=== PATIENT | male | born 1945 | race Caucasian/White ===

== ENCOUNTER 2018-12-05 01:17 | Emergency (ER) | payer OTHER, MEDICARE ==
--- NOTE | 2018-12-05 01:41 | EDPHY ---
General - History Smoking Status: Never smoked Time Seen by Provider: 12/05/18 01:34 Narrative: CLINICAL IMPRESSION: Urinary retention ASSESSMENT/PLAN: A 72-year-old male visiting our area from the [facility] presents to the emergency department with concerns of acute urinary retention. Patient states he has had very little urine output since this morning, has been traveling all day, drank a lot of water with dinner. He has been out of his BPH medications for 3 days. He denies significant abdominal pain, nausea, vomiting, fever and chills. No history of UTI. Patient will be signed out to Dr. Chamorro pending renal functions, urinalysis, and re-evaluation. DIFFERENTIAL DX: Differential includes but not limited to urinary tract infection, urinary retention, obstructive ureterolithiasis, renal insufficiency, dehydration ED PROCEDURES: See lab and/or imaging results below ED COURSE: Bladder scan reveals 284 mL 1:50 a.m.: Case discussed with Dr. Chamorro. Plan basic metabolic panel, evaluate renal function, urinalysis, patient declining IV fluids. Will plan to give prescription for his regular BPH medication. CHIEF COMPLAINT: Urinary retention HPI: Very pleasant 72-year-old male visiting our area from [facility], for a martial arts seminar, arriving this morning, presents to the emergency department after he ran out of his normal BPH medications 3 days ago. He reports he has not had good urine output since this morning. He is able to relieve approximately 5-10 mL at a time. He spends most of his time between [place] and very [place] in [place]. His urologist [place] provided him with a catheter to use at home if he ever retained because [place] but he has never had to use this. He denies severe lower abdominal pain, fever, chills or UTI symptoms. No flank pain. Patient states he has found the "perfect combination" for his BPH between Cialis and alfuzosin and is nervous about detering from this combination as he does not want risk for adverse long-term sexual dysfunction. He reports he has been drinking water all night and does not feel he needs an IV. He also reports his primary care gave him a prescription for a potent anti-inflammatory if he ever needed at some point but he does not remember what this is. PAST MEDICAL HISTORY: BPH, hypothyroidism See triage summary and nurse notes for addition applicable history Pertinent Past Surgical History: None reported Family History: None reported Social History: Visiting from [place] REVIEW OF SYSTEMS: A full 10 point review of systems was negative except for those mentioned in HPI. PHYSICAL EXAM: General Appearance: Alert, oriented, pleasant, younger than the stated age, appropriate, cooperative, NAD, well hydrated, non-toxic appearing, VSS, no hypoxia. Respiratory: There are no retractions, lungs are clear to auscultation. Cardiac: Regular rate and rhythm, no murmurs or gallops. Gastrointestinal: Abdomen is soft, nontender, bowel sounds normal, no masses/ hernia, no rigidity, guarding or focal peritoneal findings. Skin: Warm, dry, no rashes, no nodules on palpation. MEDICAL DECISION MAKING: Patient was seen independently. Secondary supervising physician at time of evaluation was: Dr. Chamorro . Diagnosis: Acute urinary retention . New, requires workup Summary: See Assessment and Plan for summary of ED visit Clinical lab tests: ordered / reviewed. Signed out to Dr. Chamorro at 2:00 a.m. Patient Progress: Stable. (Jose Easley) Medical Decision Makin: Patient resting comfortably no acute distress. States he denies any abdominal pain. He is requesting discharge. He does understand slightly dehydrated with elevated BUN. I do encourage him to stay well-hydrated drink lots of fluids. We discussed about a dose of Flomax. He would like to take a dose of Flomax here. Plan for medication refill. He does understand if he has urinary retention or trouble urinating he needs return emergency room he declined any IV establishment here IV fluids, declined Orantes catheter. Bladder scan performed. He understands return emergency room if develops worsening abdominal pain, fever , vomiting (Gilmer Chamorro) - Objective Vital Signs: Initial Vital Signs Temperature (C) 36.6 C 12/05/18 01:22 Heart Rate 61 12/05/18 01:22 Respiratory Rate 16 12/05/18 01:22 Blood Pressure 178/84 H 12/05/18 01:22 O2 Sat (%) 95 12/05/18 01:22 O2 Delivery Mode Nasal Cannula Allergies/Adverse Reactions: Sulfa (Sulfonamide Antibiotics) Allergy (Verified 12/05/18 01:20) Home Medications: Medication Instructions Recorded Alfuzosin HCl 12/05/18 Alfuzosin HCl [Alfuzosin HCl ER] 10 mg PO DAILY #10 tab.er.24h 12/05/18 Cialis 12/05/18 Levothyroxine 12/05/18 Tadalafil [Cialis] 5 mg PO DAILY #10 tablet 12/05/18 Laboratory Results: Laboratory Results 12/05/18 02:05 12/05/18 12/05/18 02:05 01:45 Sodium 141 mEq/L mEq/L (135-145) Potassium 4.9 mEq/L mEq/L (3.5-5.2) Chloride 105 mEq/L mEq/L (97-110) Carbon Dioxide 29 mEq/l mEq/l (22-31) Anion Gap 7 mEq/L mEq/L (6-14) BUN 30 mg/dL H mg/dL (7-23) Creatinine 0.9 mg/dL mg/dL (0.7-1.3) Estimated GFR > 60 Glucose 95 mg/dL mg/dL (70-100) Calcium 9.3 mg/dL mg/dL (8.5-10.4) Urine Color YELLOW Urine Appearance CLEAR Urine pH 5.0 (5.0-7.5) Ur Specific Chestnut 1.021 (1.002-1.030) Urine Protein NEGATIVE (NEGATIVE) Urine Ketones NEGATIVE (NEGATIVE) Urine Blood NEGATIVE (NEGATIVE) Urine Nitrate NEGATIVE (NEGATIVE) Urine Bilirubin NEGATIVE (NEGATIVE) Urine Urobilinogen NEGATIVE EU EU (0.2-1.0) Ur Leukocyte Esterase NEGATIVE (NEGATIVE) Urine RBC NONE SEEN /hpf /hpf (0-3) Urine WBC 1-3 /hpf /hpf (0-3) Ur Epithelial Cells NONE SEEN /lpf /lpf (NONE-1+) Urine Mucus TRACE /lpf /lpf (NONE-1+) Urine Glucose NEGATIVE (NEGATIVE) Departure - Departure Disposition: Home, Routine, Self-Care Clinical Impression: Acute urinary retention Condition: Good Instructions: Urinary Retention in Men (ED) Additional Instructions: DISCHARGE INSTRUCTIONS FROM YOUR DOCTOR Thank you for visiting our emergency department today. You were treated by a physician carpenter's assistant today and your case was reviewed with our ED Attending physician. Please keep in mind that discharge from the emergency department does not mean that there is nothing wrong - it simply means that we have not identified an emergency condition that requires further evaluation or treatment in the hospital. You should always plan to follow up with primary care for re- evaluation of your condition in the next 2-3 days. If you have been referred to a specialist, please call as soon as possible (today or tomorrow) to schedule your follow up appointment at the appropriate time. [ YOUR GIVEN PRESCRIPTIONS FOR YOUR REGULAR BPH MEDICATIONS. PLEASE FILL THESE IN THE MORNING. YOU HAD 284 ML OF URINE IN YOUR BLADDER TONIGHT. KIDNEY FUNCTIONS WERE NORMAL. YOU DID NOT WISH TO DEFER FROM YOUR REGULAR BPH MEDICATIONS AND THEREFORE WE DID NOT GIVE FLOMAX IN THE EMERGENCY DEPARTMENT. PLEASE STAY HYDRATED TO HELP WITH CONSTIPATION. PLEASE RESTART MEDICATIONS. RETURN TO THE EMERGENCY DEPARTMENT FOR WORSENING URINARY RETENTION, ABDOMINAL PAIN, FEVER, CHILLS OR ANY OTHER CONCERN. People present with illnesses and injuries in different ways, and it is always possible that we have missed something. You may always return for re-evaluation if symptoms worsen or if they are not improving or if you develop new/different symptoms. Again, thank you for choosing our emergency department. We hope that you feel better. Referrals: CLARKE BELLAMY MD [Other] - As per Instructions Prescriptions: Alfuzosin HCl [Alfuzosin HCl ER] 10 mg PO DAILY #10 tab.er.24h Tadalafil [Cialis] 5 mg PO DAILY #10 tablet
[2018-12-05] MEDS ORDERED: NS 1,000 ML IV ONE (01:55)
[2018-12-05] MEDS ORDERED: TAMSULOSIN HCL 0.4 MG CAP PO ONE (03:06)
[2018-12-05 03:21] VITALS: BP 136/72
== END 2018-12-05 03:20 | disposition home or self-care (01) ==
PROC: 4A0D7LZ Measurement of Urinary Volume, Via Natural or Artificial Opening (ICD-10-PCS; principal; 2018-12-05)
DX: R33.9 Retention of urine, unspecified (principal); N40.1 Benign prostatic hyperplasia with lower urinary tract symptoms; E86.9 Volume depletion, unspecified; Z88.2 Allergy status to sulfonamides